=== PATIENT | male | born 1970 | race Caucasian/White ===

== ENCOUNTER 2020-02-26 16:54 | Outpatient (REF) | payer OTHER, SELFPAY | END 2020-02-26 16:55 | disposition home or self-care (01) | LOC: HO.LAB 16:54 | PROVIDERS: PCP Internal Medicine; Visit Provider Internal Medicine | DX: Z20.828 Contact with and (suspected) exposure to other viral communicable diseases (principal) | CPT/HCPCS: C9803; U0003 ==

== ENCOUNTER 2020-05-09 13:52 | Outpatient (REF) | payer OTHER, SELFPAY ==
--- NOTE | 2020-05-09 14:28 | XR_ITS ---
EXAMINATION: XR SHOULDER, RIGHT XR SHOULDER, LEFT CLINICAL INFORMATION: Shoulder pain. M25.519 COMPARISON: None. TECHNIQUE: Each shoulder is imaged in 3 views. There are a total of 6 views. FINDINGS: Right: There is focal irregular indentation anterior humeral head with benign-appearing heterotopic ossification in this area. The glenohumeral joint appears normal. There is no acute fracture or dislocation. The acromioclavicular alignment is normal. No visible rotator cuff calcifications. Left: There is focal irregular indentation anterior humeral head of lesser severity than that on the contralateral right side. The glenohumeral joint appears normal. There is no acute fracture or dislocation. There is mild elevation distal clavicle suggesting acromioclavicular sprain, possibly chronic. No visible rotator cuff calcifications. XR/XR shoulder RT min 2V IMPRESSION: 1. Bilateral irregular anterior indentation humeral head, greater on right with some benign heterotopic ossification. 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 Subscapularis avulsions may have similar appearance, less likely. 2. Mild left acromioclavicular separation. 3. No visible rotator cuff calcifications. 4. No acute fracture or dislocation.
--- NOTE | 2020-05-09 14:28 | XR_ITS ---
EXAMINATION: XR SHOULDER, RIGHT XR SHOULDER, LEFT CLINICAL INFORMATION: Shoulder pain. M25.519 COMPARISON: None. TECHNIQUE: Each shoulder is imaged in 3 views. There are a total of 6 views. FINDINGS: Right: There is focal irregular indentation anterior humeral head with benign-appearing heterotopic ossification in this area. The glenohumeral joint appears normal. There is no acute fracture or dislocation. The acromioclavicular alignment is normal. No visible rotator cuff calcifications. Left: There is focal irregular indentation anterior humeral head of lesser severity than that on the contralateral right side. The glenohumeral joint appears normal. There is no acute fracture or dislocation. There is mild elevation distal clavicle suggesting acromioclavicular sprain, possibly chronic. No visible rotator cuff calcifications. XR/XR shoulder LT min 2V IMPRESSION: 1. Bilateral irregular anterior indentation humeral head, greater on right with some benign heterotopic ossification. 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 Subscapularis avulsions may have similar appearance, less likely. 2. Mild left acromioclavicular separation. 3. No visible rotator cuff calcifications. 4. No acute fracture or dislocation.
== END 2020-05-09 13:53 | disposition home or self-care (01) ==
LOC: HO.HOSX 13:52
PROVIDERS: Visit Provider Orthopaedic Surgery
DX: M25.512 Pain in left shoulder (principal); M25.511 Pain in right shoulder; F17.210 Nicotine dependence, cigarettes, uncomplicated; Z88.8 Allergy status to other drugs, medicaments and biological substances
CPT/HCPCS: 20610; 73030; 99202; J1100